=== PATIENT | male | born 1975 | race Caucasian/White ===

== ENCOUNTER 2023-09-19 16:13 | Emergency (ER) | payer OTHER, SELFPAY ==
[2023-09-19 16:25] VITALS: BP 130/84; PULSE 124; RESP 16; TEMP 38.5; O2SAT 97
--- NOTE | 2023-09-19 17:37 | ED.ANIMALBIT ---
HPI - Animal Bite General Chief Complaint: Animal Bite Stated Complaint: Dog Bite Time Seen by Provider: 09/19/23 17:31 Source: patient, family () and RN notes reviewed Mode of arrival: ambulatory Limitations: no limitations History of Present Illness HPI narrative: Patient presents today complaining of a dog bite to his right forearm that occurred 1 week ago. Patient was bit by his own dog while playing with it in his backyard. Today, he noted redness around the scab as well as some swelling and fever up to 100.8. Currently rates his pain 3/10 and has been taking Advil with some relief. He is up-to-date on his tetanus vaccine. Dog is not up-to-date on its shots, but he does not have concern about rabies. Patient states he has been taking the scab off of the wound and cleaning with peroxide daily. Related Data Allergies Allergy/AdvReac Type Severity Reaction Status Date / Time No Known Allergies Allergy Unverified 08/22/11 11:51 Review of Systems Review of Systems: CONSTITUTIONAL: Denies body aches, fever, chills, or sweats. EYES: Denies visual changes, redness, or discharge. ENT: Denies rhinorrhea, congestion, sore throat, or otalgia. CARDIOVASCULAR: Denies chest pain, palpitations, or edema. RESPIRATORY: Denies cough or dyspnea. GASTROINTESTINAL: Denies abdominal pain, nausea, vomiting, or diarrhea. GENITOURINARY: Denies dysuria or hematuria. SKIN: Denies rash, itching. + dog bite to right forearm MUSCULOSKELETAL: Denies back pain, joint pain, or myalgia. NEUROLOGIC: Denies headache, numbness, tingling, or weakness. PSYCH: Denies depression or anxiety. PMFSH Family History Family History Other Hypertension Social History Social History Alcohol intake: current Comments At time of signature, I have reviewed and agree with nursing past medical, surgical, social and family history unless otherwise noted. Please see nursing chart for further information. There is no relevant family history pertinent to the presenting complaint Exam Narrative: GENERAL: Well-appearing, well-nourished, and in no acute distress. HEAD: Normocephalic, atraumatic. EYES: EOMI. No redness or drainage. Conjunctivae normal. ENT: Mucous membranes pink and moist. NECK: Normal AROM. CHEST: No respiratory distress. EXTREMITIES: Normal range of motion. No edema. SKIN: Warm, dry, no rash. Capillary refill normal. Normal skin turgor. 0.5 cm flat scab to the dorsal aspect of the right forearm with 5 x 11 cm area of erythema. No induration. No fluctuance. No red streaking. Slight edema medially. Distal sensation intact. Capillary refill normal. Radial pulse normal. Full range of motion of the wrist and elbow. NEURO: No focal deficits. Alert and oriented x3. Gait steady. PSYCH: Normal affect. No signs of depression or anxiety. Course Course Level of Care: Express Care Visit Vital Signs Vital signs: Vital Signs Temperature 101.3 F H 09/19/23 16:25 Pulse Rate 124 H 09/19/23 16:25 Respiratory Rate 16 09/19/23 16:25 Blood Pressure 130/84 09/19/23 16:25 Pulse Oximetry 97 09/19/23 16:25 Oxygen Delivery Room Air 09/19/23 16:25 Temperature 101.3 F H 09/19/23 16:25 Pulse Rate 124 H 09/19/23 16:25 Respiratory Rate 16 09/19/23 16:25 Blood Pressure 130/84 09/19/23 16:25 Pulse Oximetry 97 09/19/23 16:25 Oxygen Delivery Room Air 09/19/23 16:25 Reviewed MDM - Animal Bite MDM Narrative Medical decision making narrative: Patient has been instructed on proper care of his wound. Prescription for Augmentin has been sent to pharmacy. Anticipatory guidance given. Differential Diagnosis Differential diagnosis: Likely bite by animal, dog bite and other (Cellulitis, abscess) Critical Care Time Critical Care Time Critical Care Time: No Discharge Plan Dischar
== END 2023-09-19 17:51 | disposition home or self-care (01) ==
PROVIDERS: Emergency Provider Nurse Practitioner; PCP Internal Medicine Infectious Disease
DX: L03.113 Cellulitis of right upper limb (principal); S51.851A Open bite of right forearm, initial encounter; W54.0XXA Bitten by dog, initial encounter
CPT/HCPCS: 99213; G0463

== ENCOUNTER 2024-09-06 08:45 | Outpatient (CLI) | payer OTHER, SELFPAY ==
--- NOTE | ~2024-09-06 | MR_ITS ---
MRI of the right elbow CLINICAL HISTORY: Pain TECHNIQUE: Proton-density and proton-density fat-sat imaging was performed in the axial, coronal, and sagittal planes. FINDINGS: Ulnar collateral ligament is intact. Radial collateral ligament and the lateral ulnar colla teral ligament are intact. There is severe tendinosis of the common extensor tendon origin of the lat eral epicondyle of the humerus. Common flexor tendon origin is intact. Bone marrow signals are unremarkable. No osseous or articular abnormality of the elbow joint seen. No joint effusion. Biceps, brachialis, and triceps tendons are intact. There is minimal tendinosis of the distal biceps tendon. Visualized muscle bellies are unremarkable. No soft tissue mass or fluid collection seen. IMPRESSION: Severe tendinosis of the common extensor tendon origin at the lateral epicondyle of the humerus. Reviewed, dictated and finalized at [facility]. IMPRESSION: Severe tendinosis of the common extensor tendon origin at the lateral epicondyl e of the humerus.
--- OUTSIDE RECORDS SUMMARY | 2024-09-06 09:03 | XMS_ITS | Data Portability ---
Author Organization [facility]ICI[facility] Address [address] [place] [address] Assessment Encounter Date Assessment Date Assessment LastModified by Organization Details LastModified Time 08/16/2022 08/16/2022 The labs drawn i n the ER on 08/10/[address] scan report from 08/10/2022 were both reviewed. His serum bilirubin was normal, he had protein and urobilinogen in his urine and the CT scan suggested constipation and possible inflammatory LN. oajao Not available 08/16/2022 12:39:39 01/21/2023 01/21/2023 I am not sure wh y he remains tachycardic oajao Not available 01/21/2023 14:08:54 02/07/2023 02/07/2023 I am not sure wh y he has a low grade fever, this may also explain his tachycardia. The differential includes an infection, rheumatological causes, inflammation and less likely a malignancy. oajao Not available 02/07/2023 13:20:12 Plan of Treatment Reminders Order Date Submit Date Provider Last Modified By Organization Details Last Modified Time Details Appointments None recorded. Lab CBC w/ auto diff 2022 023 [facility] (One Call Scheduling), [address] [place], [address], 12:20:56 CMP, serum or plasma 2022 023 [facility] (One Call Scheduling), [address] [place], [address], 12:20:56 urinalysis complete, reflex culture 2022 023 [facility] (One Call Scheduling), [address] [place], [address], 3 12:20:56 culture, blood - 2 sets, please 2022 023 [facility] (One Call Scheduling), [address] [place], [address], 3 08:11:35 culture, blood - 2 sets, please 2022 023 [facility] (One Call Scheduling), [address] [place], [address], 3 08:11:16 ESR (erythrocy te sedimentat ion rate), blood 2022 023 [facility] (One Call Scheduling), [address] [place], [address], 3 12:05:22 CRP, high sensitivit y, serum or plasma 2022 023 [facility] (One Call Scheduling), [address] [place], [address], 3 12:07:00 influenza virus A + B + SARS-CoV-2 (COVID19) Ag panel, rapid IA, upper respirator y specimen 2022 023 [facility], [address] [place], [address], 3 11:40:40 TSH, serum, reflex free T4 2022 023 [facility] (One Call Scheduling), [address] [place], [address], 3 12:17:02 TSH + free T4, serum 2022 023 [facility], [address], [place], [address], 10:14:25 magnesium, serum or plasma 2022 023 [facility], [address], [place], [address], 10:14:27 drug screen, blood 2022 023 [facility], [address], [place], [address], 10:14:29 CBC w/ auto diff 2022 023 [facility], [address], [place], [address], 10:14:28 basic metabolic 1998 panel, serum or plasma 2022 023 [facility], [address], [place], [address], 10:14:26 HIV 1 + 2, meaningful use set 2022 023 [facility], [address], [place], [address], 3 19:09:01 Hepatitis C IgG Ab, qual, serum 2022 023 [facility], [address], [place], [address], 19:08:58 lipid panel, serum 2022 023 [facility], [address], [place], [address], 06:19:38 glucose, QN [mass/volu me], serum or plasma 2022 023 [facility], [address], [place], [address], 3 06:19:39 HBsAg (hepatitis B surface Ag), EIA, serum 2022 023 [facility], [address], [place], [address], 3 19:09:00 bilirubin, total, serum or plasma 2022 023 [facility], [address], [place], [address], 3 19:09:00 unlisted lab - [id number] 9 drug-scree n 2022 023 [facility], [address], [place], [address], 3 19:08:59 urinalysis , dipstick 2022 023 [facility], [address], [place], [address], 3 06:19:[address] referral - Tachycardi a, abnormal EKG 2022 023 [facility], [address], [place], [address], 3 20:42:04 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 Imaging electrocar diogram 2022 023 [facility] (Radiology), [address] [place], [address], 3 12:25:32 XR, chest, 2 view - Low grade fever 2022 023 [email or web address] [facility] (Radiology), [address] [place], [address], 3 14:53:03 Medication Orders None recorded. Patient TargetsNo targets recorded. Patient Instructions Encounter Date Encounter Id Patient Instructions Last Modified By Organization Details Last Modified Time 08/16/2022 [id number] abdominal pain: care instructions oajao Not available 08/16/2022 10:48:04 Quitting Tobacco : Care Instructions oajao Not available 08/16/2022 10:47:00 Labs GI Stop smoking Bivalent COVID booster He should avoid eating foods that cause his LLQ abdominal pain, he states that he likes his Hot wings. Follow up in 6-8 weeks oajao Not available 08/16/2022 12:41:24 Detailed initial visit oajao Not available 08/16/2022 12:40:04 10/04/2022 [id number] A healthy lifestyle: care instructions oajao Not available 10/04/2022 10:37:30 learning about healthy weight oajao Not available 10/04/2022 10:37:30 Low fat, low CHO diet Colonoscopy report, please Follow up in 1 year and PRN oajao Not available 10/04/2022 10:50:53 01/21/2023 [id number] Labs Follow up i n 2 weeks and PRN oaisadorao Not available 01/21/2023 12:34:[address] Scan report was reviewed with him oaisadorao Not available 01/21/2023 14:09:36 02/07/2023 [id number] Colonoscopy report from [facility] Labs Podiatry CXR Follow up in 7-10 days ER if his symptoms worsen oajao Not available 02/07/2023 11:43:23 Detailed discussion oajao Not available 02/07/2023 13:19:14 02/10/2023 [id number] Colonoscopy report from [facility], please Cardiology TTE as ordered Blood culture results Follow up in 6 weeks and PRN oajao Not available 02/10/2023 12:11:20 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 Screening for malignant neoplasm of colon LLQ abdominal pain, screening colonoscopy LLQ abdominal pain, screening colonoscopy Referring Physician: Chris Brown, Internal Medicine, Encounter Date: 08/16/2022 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 Referral for Onyc homycosis of toenails Onychomycosis Onychomycosis Referring Physician: Chris Brown, Internal Medicine, Encounter Date: 02/07/2023 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 [address] [place], [address], 08/18/2022 06:19:38 08/18/1908/18/2022 LIPID PANEL HDL cholesterol 35.2 mg/dL 40.0-1 00.0 below low normal Not Available [facility] [address] [place], [address], 08/18/2022 06:19:38 08/18/1908/18/2022 LIPID PANEL VLDL cholesterol ezny 22.00 mg/dL 5.00-4 0.00 Not Available [facility] [address] [place], [address], 08/18/2022 06:19:38 08/18/1908/18/2022 LIPID PANEL LDL chol calc ([facility]) 127.2 mg/dL 0.0-99 .0 above high normal Not Available [facility] [address] [place], [address], 08/18/2022 06:19:38 08/18/1908/17/2022 URINA LYSIS , ROUTI NE specific gravity 1.020 1.001- 1.035 Not Available [facility] [address] [place], [address], 08/18/2022 06:19:39 08/18/1908/17/2022 URINA LYSIS , ROUTI NE pH 7.0 5.0-7. 0 Not Available [facility] [address] [place], [address], 08/18/2022 06:19:39 08/18/1908/17/2022 URINA LYSIS , ROUTI NE urine-color YELLOW yellow Not Available [facility] [address] [place], [address], 08/18/2022 06:19:39 08/18/1908/17/2022 URINA LYSIS , ROUTI NE appearance CLEAR Not Available [facility] [address] [place], [address], 08/18/2022 06:19:39 08/18/1908/17/2022 URINA LYSIS , ROUTI NE WBC esterase COMMEN T NEGAT JAREK Not Available [facility] [address] [place], [address], 08/18/2022 06:19:39 08/18/1908/17/2022 URINA LYSIS , ROUTI NE protein COMMEN T NEGAT JAREK Not Available [facility] [address] [place], [address], 08/18/2022 06:19:39 08/18/1908/17/2022 URINA LYSIS , ROUTI NE glucose COMMEN T NEGAT JAREK Not Available [facility] [address] [place], [address], 08/18/2022 06:19:39 08/18/1908/17/2022 URINA LYSIS , ROUTI NE ketones COMMEN T NEGAT JAREK Not Available [facility] [address] [place], [address], 08/18/2022 06:19:39 08/18/1908/17/2022 URINA LYSIS , ROUTI NE occult blood COMMEN T NEGAT JAREK Not Available [facility] [address] [facility], [place], [address], 08/18/2022 06:19:39 08/18/1908/17/2022 URINA LYSIS , ROUTI NE bilirubin COMMEN T NEGAT JAREK Not Available [facility] [address] [place], [address], 08/18/2022 06:19:39 08/18/1908/17/2022 URINA LYSIS , ROUTI NE urobilinogen ,semi-qn 0.2 eu/dL <=1.[address] [facility] [address] [place], [address], 08/18/2022 06:19:39 08/18/1908/17/2022 URINA LYSIS , ROUTI NE nitrite, urine COMMEN T negati ve NEGAT JAREK Not Available [facility] [address] [place], [address], 08/18/2022 06:19:39 08/18/1908/18/2022 HCV ANTIB MAKENZIE hep C virus Ab NON REACTI VE nonrea ctive HCV antib makenzie alone does not diffe renti ate betwe en previ ously resol veda infec tion and activ e infec tion. Equiv ocal and React jarek HCV antib makenzie resul ts shoul d be follo wed up with an HCV RNA test to suppo rt the diagn osis of activ e HCV infec tion. Not Available [facility] ([facility]) [address] [facility], [place], [address], 08/18/2022 19:08:58 08/18/1908/18/2022 HIV AB/P2 4 AG WITH REFLE X HIV Ab/P24 Ag screen NON REACTI VE nonrea ctive HIV Negat jarek HIV-1 /HIV- 2 antib odies and HIV-1 p24 antig en were NOT detec marianne. There is no labor atory evide nce of HIV infec tion. Not Available [facility] ([facility]) [address] [facility], [place], [address], 08/18/2022 19:09:01 08/18/1908/18/2022 GLUCO SE glucose 97 mg/dL 65-99 Not Available [facility] [address] [place], [address], 08/18/2022 06:19:39 08/18/1908/18/2022 HBSAG SCREE N HBsAg screen NEGATI VE negati ve Not Available [facility] ([facility]) [address] [facility], [place], [address], 08/18/2022 19:09:00 08/18/1908/18/2022 BILIR UBIN, TOTAL bilirubin, total 0.4 mg/dL 0.0-1. 2 Not Available [facility] ([facility]) [address] [place], [address], 08/18/2022 19:09:00 08/18/19 23 08/17/2022 [id number] 1 9 DRUG- SCREE N drug screen comment: COMMEN T This eros sis is perfo rmed by immun oassa y. Posit jarek findi ngs are uncon firme d eros tical test resul ts; if resul ts do not suppo rt expec marianne clini zeny findi ng, confi rmati on by an alter teresa metho dolog y is recom hector d. Patie nt metab olic varia bles, speci fic drug chemi stry, and speci men gato cteri stics can affec t test outco me. Techn ical consu ltati on is avail able at [email or web address], or call toll free [phone]. Not Available [facility] ([facility]) [address] [facility], [place], [address], 08/18/2022 19:08:59 08/18/1908/18/2022 [id number] 1 9 DRUG- SCREE N amphetamines , urine NEGATI VE NG/mL cutoff =1000 Amphe tamin e test inclu shahana Amphe tamin e and Metha mphet amine . Not Available [facility] ([facility]) [address] [facility], [place], [address], 08/18/2022 19:08:59 08/18/19 23 08/18/2022 [id number] 1 9 DRUG- SCREE N barbiturate NEGATI VE NG/mL cutoff =300 Not Available [facility] ([facility]) [address] [facility], [place], [address], 08/18/2022 19:08:59 08/18/19 23 08/18/2022 [id number] 1 9 DRUG- SCREE N benzodiazepi rio NEGATI VE NG/mL cutoff =300 Not Available [facility] ([facility]) [address] [place], [address], 08/18/2022 19:08:59 08/18/19 23 08/18/2022 [id number] 1 9 DRUG- SCREE N cannabinoid POSITI VE NG/mL cutoff =50 abnormal Not Available [facility] ([facility]) [address] [place], [address], 08/18/2022 19:08:59 08/18/19 23 08/18/2022 [id number] 1 9 DRUG- SCREE N cocaine (metab.) NEGATI VE NG/mL cutoff =300 Not Available [facility] ([facility]) [address] [place], [address], 08/18/2022 19:08:59 08/18/19 23 08/18/2022 [id number] 1 9 DRUG- SCREE N methaqualone NEGATI VE NG/mL cutoff =300 Not Available [facility] ([facility]) [address] [place], [address], 08/18/2022 19:08:59 08/18/19 23 08/18/2022 [id number] 1 9 DRUG- SCREE N opiate NEGATI VE NG/mL cutoff =2000 Opiat e test inclu shahana Codei ne, Morph ine, Pemberton morph one, Pemberton codon e. Not Available [facility] ([facility]) [address] [place], [address], 08/18/2022 19:08:59 08/18/19 23 08/18/2022 [id number] 1 9 DRUG- SCREE N phencyclidin e NEGATI VE NG/mL cutoff =25 Not Available [facility] ([facility]) [address] [place], [address], 08/18/2022 19:08:59 08/18/19 23 08/18/2022 [id number] 1 9 DRUG- SCREE N methadone screen, urine NEGATI VE NG/mL cutoff =300 Not Available [facility] ([facility]) [address] [place], [address], 08/18/2022 19:08:59 01/22/2001/22/2023 TSH+F REE T4 TSH 8.830 uIU/m L 0.450- 4.500 above high normal Not Available [facility] ([facility]) [address] [place], [address], 01/26/2023 10:14:25 01/22/2001/22/2023 TSH+F REE T4 T4,free(dire ct) 0.98 NG/dL 0.82-1 .77 Not Available [facility] ([facility]) [address] [place], [address], 01/26/2023 10:14:25 01/22/2001/22/2023 BASIC METAB OLIC PANEL (7) glucose 106 mg/dL 70-99 above high normal Not Available [facility] ([facility]) [address] [place], [address], 01/26/2023 10:14:26 01/22/2001/22/2023 BASIC METAB OLIC PANEL (7) BUN 26 mg/dL 6-24 above high normal Not Available [facility] ([facility]) [address] [place], [address], 01/26/2023 10:14:26 01/22/2001/22/2023 BASIC METAB OLIC PANEL (7) creatinine 0.90 mg/dL 0.76-1 .27 Not Available [facility] ([facility]) [address] [place], [address], 01/26/2023 10:14:26 01/22/20 23 01/22/2023 BASIC METAB OLIC PANEL (7) eGFR 106 mL/mi n/1.7 3 >59 Not Available [facility] ([facility]) [address] [place], [address], 01/26/2023 10:14:26 01/22/2001/22/2023 BASIC METAB OLIC PANEL (7) BUN/creatini ne ratio 29 9-20 above high normal Not Available [facility] ([facility]) [address] [facility], [place], [address], 01/26/2023 10:14:26 01/22/2001/22/2023 BASIC METAB OLIC PANEL (7) sodium 141 mmol/ L 134-14 4 Not Available [facility] ([facility]) [address] [facility], [place], [address], 01/26/2023 10:14:26 01/22/2001/22/2023 BASIC METAB OLIC PANEL (7) potassium 4.9 mmol/ L 3.5-5. 2 Not Available [facility] ([facility]) [address] [facility], [place], [address], 01/26/2023 10:14:26 01/22/20 23 01/22/2023 BASIC METAB OLIC PANEL (7) chloride 103 mmol/ L 96-106 Not Available [facility] ([facility]) [address] [facility], [place], [address], 01/26/2023 10:14:26 01/22/20 23 01/22/2023 BASIC METAB OLIC PANEL (7) carbon dioxide, total 25 mmol/ L 20-29 Not Available [facility] ([facility]) [address] [facility], [place], [address], 01/26/2023 10:14:26 01/22/2001/22/2023 MAGNE SIUM magnesium 2.3 mg/dL 1.6-2. 3 Not Available [facility] ([facility]) [address] [facility], [place], [address], 01/26/2023 10:14:27 01/22/2001/22/2023 CBC WITH DIFFE RENTI AL/PL ATELE T WBC 9.1 x10e3 /uL 3.4-10 .8 Not Available [facility] ([facility]) [address] [place], [address], 01/26/2023 10:14:28 01/22/2001/22/2023 CBC WITH DIFFE RENTI AL/PL ATELE T RBC 3.40 x10e6 /uL 4.14-5 .80 below low normal Not Available [facility] ([facility]) [address] [place], [address], 01/26/2023 10:14:28 01/22/2001/22/2023 CBC WITH DIFFE RENTI AL/PL ATELE T hemoglobin 10.9 g/dL 13.0-1 7.7 below low normal Not Available [facility] ([facility]) [address] [place], [address], 01/26/2023 10:14:28 01/22/2001/22/2023 CBC WITH DIFFE RENTI AL/PL ATELE T hematocrit 33.4 % 37.5-5 1.0 below low normal Not Available [facility] ([facility]) [address] [place], [address], 01/26/2023 10:14:28 01/22/2001/22/2023 CBC WITH DIFFE RENTI AL/PL ATELE T MCV 98 fL 79-97 above high normal Not Available [facility] ([facility]) [address] [place], [address], 01/26/2023 10:14:28 01/22/2001/22/2023 CBC WITH DIFFE RENTI AL/PL ATELE T MCH 32.1 pg 26.6-3 3.0 Not Available [facility] ([facility]) [address] [place], [address], 01/26/2023 10:14:28 01/22/20 23 01/22/2023 CBC WITH DIFFE RENTI AL/PL ATELE T MCHC 32.6 g/dL 31.5-3 5.7 Not Available [facility] ([facility]) [address] [facility], [place], [address], 01/26/2023 10:14:28 01/22/20 23 01/22/2023 CBC WITH DIFFE RENTI AL/PL ATELE T RDW 12.3 % 11.6-1 5.4 Not Available [facility] ([facility]) [address] [facility], [place], [address], 01/26/2023 10:14:28 01/22/2001/22/2023 CBC WITH DIFFE RENTI AL/PL ATELE T platelets 387 x10e3 /uL 150-45 0 Not Available [facility] ([facility]) [address] [facility], [place], [address], 01/26/2023 10:14:28 01/22/20 23 01/22/2023 CBC WITH DIFFE RENTI AL/PL ATELE T neutrophils 57 % notest ab. Not Available [facility] ([facility]) [address] [facility], [place], [address], 01/26/2023 10:14:28 01/22/20 23 01/22/2023 CBC WITH DIFFE RENTI AL/PL ATELE T lymphs 32 % notest ab. Not Available [facility] ([facility]) [address] [facility], [place], [address], 01/26/2023 10:14:28 01/22/20 23 01/22/2023 CBC WITH DIFFE RENTI AL/PL ATELE T monocytes 11 % notest ab. Not Available [facility] ([facility]) [address] [facility], [place], [address], 01/26/2023 10:14:28 01/22/20 23 01/22/2023 CBC WITH DIFFE RENTI AL/PL ATELE T eos 0 % notest ab. Not Available [facility] ([facility]) [address] [facility], [place], [address], 01/26/2023 10:14:28 01/22/2001/22/2023 CBC WITH DIFFE RENTI AL/PL ATELE T basos 0 % notest ab. Not Available [facility] ([facility]) [address] [facility], [place], [address], 01/26/2023 10:14:28 01/22/2001/22/2023 CBC WITH DIFFE RENTI AL/PL ATELE T neutrophils (absolute) 5.1 x10e3 /uL 1.4-7. 0 Not Available [facility] ([facility]) [address] [facility], [place], [address], 01/26/2023 10:14:28 01/22/2001/22/2023 CBC WITH DIFFE RENTI AL/PL ATELE T lymphs (absolute) 2.9 x10e3 /uL 0.7-3. 1 Not Available [facility] ([facility]) [address] [facility], [place], [address], 01/26/2023 10:14:28 01/22/2001/22/2023 CBC WITH DIFFE RENTI AL/PL ATELE T monocytes(ab solute) 1.0 x10e3 /uL 0.1-0. 9 above high normal Not Available [facility] ([facility]) [address] [facility], [place], [address], 01/26/2023 10:14:28 01/22/2001/22/2023 CBC WITH DIFFE RENTI AL/PL ATELE T eos (absolute) 0.0 x10e3 /uL 0.0-0. 4 Not Available [facility] ([facility]) [address] [facility], [place], [address], 01/26/2023 10:14:28 01/22/20 23 01/22/2023 CBC WITH DIFFE RENTI AL/PL ATELE T baso (absolute) 0.0 x10e3 /uL 0.0-0. 2 Not Available [facility] ([facility]) [address] [facility], [place], [address], 01/26/2023 10:14:28 01/22/20 23 01/22/2023 CBC WITH DIFFE RENTI AL/PL ATELE T immature granulocytes 0 % notest ab. Not Available [facility] ([facility]) [address] [facility], [place], [address], 01/26/2023 10:14:28 01/22/2001/22/2023 CBC WITH DIFFE RENTI AL/PL ATELE T immature grans (abs) 0.0 x10e3 /uL 0.0-0. 1 Not Available [facility] ([facility]) [address] [facility], [place], [address], 01/26/2023 10:14:28 01/22/2001/21/2023 DRUG SCREE N (BLOO D AND SERUM ) disclaimer: COMMEN T This test was carlitos isidro and its perfo rmanc e gato cteri stics deter mined by [facility]. It has not been clear ed or appro veda by the Food and Drug Admin istra tion. Not Available [facility] ([facility]) [address] [facility], [place], [address], 01/26/2023 10:14:28 01/22/2001/25/2023 DRUG SCREE N (BLOO D AND SERUM ) acetone <0.010 Detec tion Limit = 0.010 Not Available [facility] ([facility]) [address] [facility], [place], [address], 01/26/2023 10:14:28 01/22/2001/25/2023 DRUG SCREE N (BLOO D AND SERUM ) ethanol <0.010 Detec tion Limit = 0.010 Not Available [facility] ([facility]) [address] [place], [address], 01/26/2023 10:14:28 01/22/2001/25/2023 DRUG SCREE N (BLOO D AND SERUM ) isopropanol <0.010 Detec tion Limit = 0.010 Not Available [facility] ([facility]) [address] [place], [address], 01/26/2023 10:14:28 01/22/2001/25/2023 DRUG SCREE N (BLOO D AND SERUM ) methanol <0.010 Detec tion Limit = 0.010 Not Available [facility] ([facility]) [address] [facility], [place], [address], 01/26/2023 10:14:28 01/22/2001/25/2023 DRUG SCREE N (BLOO D AND SERUM ) chlordiazepo xide <0.1 below low normal Not Available [facility] ([facility]) [address] [place], [address], 01/26/2023 10:14:28 01/22/2001/25/2023 DRUG SCREE N (BLOO D AND SERUM ) norchlordiaz epoxide <0.1 below low normal Not Available [facility] ([facility]) [address] [place], [address], 01/26/2023 10:14:28 01/22/2001/25/2023 DRUG SCREE N (BLOO D AND SERUM ) nordiazepam <0.1 below low normal Not Available [facility] ([facility]) [address] [place], [address], 01/26/2023 10:14:28 01/22/20 23 01/25/2023 DRUG SCREE N (BLOO D AND SERUM ) diazepam <0.1 below low normal Thera peuti c: Chlor diaze poxid e < 1.0 Norch lordi azepo xide < 0.7 Demox epam < 0.6 Nordi azepa m < 1.5 Diaze brennen < 1.0 Toxic : (Tota l, Paren t+Met ) > 5.0 Not Available [facility] ([facility]) [address] [place], [address], 01/26/2023 10:14:28 01/22/2001/25/2023 DRUG SCREE N (BLOO D AND SERUM ) salicylates NONE DETECT ED Detec tion Limit = 5 Not Available [facility] ([facility]) [address] [place], [address], 01/26/2023 10:14:28 01/22/20 23 01/26/2023 DRUG SCREE N (BLOO D AND SERUM ) pentobarbita l <1 below low normal Detec tion Limit = 1 Not Available [facility] ([facility]) [address] [place], [address], 01/26/2023 10:14:28 01/22/2001/26/2023 DRUG SCREE N (BLOO D AND SERUM ) phenobarbita l <1 below low normal Detec tion Limit = 1 Not Available [facility] ([facility]) [address] [place], [address], 01/26/2023 10:14:28 01/22/2001/26/2023 DRUG SCREE N (BLOO D AND SERUM ) butalbital <1 below low normal This test was devel dwaine and its perfo rmanc e gato cteri stics deter mined by [facility]. It has not been clear ed or appro veda by the Food and Drug Admin istra tion. Detec tion Limit = 1 Not Available [facility] ([facility]) [address] [place], [address], 01/26/2023 10:14:28 08/17/19 23 08/10/2022 CT, abdom en + pelvi s, w/ contr ast No observ ation record ed. [facility] [address] [place], [address], 08/16/2022 12:30:46 01/16/20 23 01/13/2023 CT, abdom en + pelvi s, w/ contr ast No observ ation record ed. [facility] [address] [place], [address], 01/21/2023 12:18:58 02/09/20 23 02/08/2023 XR, chest , 2 view No observ ation record ed. [facility] [address] [place], [address], 02/10/2023 11:54:50 02/10/20 23 02/09/2023 elect deborah meadgr am No observ ation record ed. [facility] [address] [place], [address], 02/10/2023 11:54:49 06/10/19 24 06/10/2023 adeno sine stres s test (PROC ) No observ ation record ed. [facility] [address], [place], [address], 06/10/2023 19:26:11 06/10/19 24 06/10/2023 cardi ac stres s test No observ ation record ed. [facility] [address], [place], [address], 06/10/2023 19:26:39 06/24/19 24 06/24/2023 myoca rdial perfu rajan study w/ eject ion fract ion (PROC ) No observ ation record ed. [facility] [address], [place], [address], 06/24/2023 15:09:30 Result Notes None recorded. 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 Not Available [facility] 21:20:14 Electrocardio gram abnormal 856865367 Active 2022 Not Available [facility] 3 21:20:14 Pain of joint of foot 830121377 Active Not Available [facility] 3 21:20:14 Anxiety 30726893 Active Not Available [facility] 3 21:20:14 Chronic anxiety 123277569 Active Not Available [facility] 3 21:20:14 Hyperlipidemi a 25117975 Active Not Available [facility] 21:20:14 Impotence Active Not Available [facility] 21:20:14 Problem Notes None recorded. Medical Equipment None Reported. Allergies No known drug allergies Medications Name Sig Start Date Stop Date Status Note LastModified by Organization Details LastModified Time cyclobenz aprine 10 mg tablet TAKE 1 TABLET BY MOUTH EVERY 8 HOURS 10/04 completed Not Available Not Available Not Available ondansetr on HCl 4 mg tablet TAKE 1 TABLET BY MOUTH EVERY 8 HOURS 01/21 completed Not Available Not Available Not Available Tubersol 5 tub. unit/0.1 mL intraderm al injection solution Inject 0.1 mL by intrader mal route. 09/05 completed Patient received PPD on 08/30/19 18, and is due to returned to be read on 09/01/19 18. Not Available Not Available Not Available peg-elect rolyte solution 420 gram oral solution USE DIRECTED 10/04 completed Not Available Not Available Not Available dicyclomi ne 20 mg tablet TAKE 1 TABLET BY MOUTH THREE TIMES DAILY NEEDED 01/21 completed Not Available Not Available Not Available diclofena c potassium 50 mg tablet Take 1 tablet twice a day by oral route for 30 days. 08/25 completed Not Available Not Available Not Available gabapenti n 300 mg capsule Take 1 capsule 3 times a day by oral route for 30 days. 08/25 completed Not Available Not Available Not Available polyethyl jayson glycol 3350 17 gram/dose oral powder TAKE 17 GRAMS BY MOUTH ONCE DAILY NEEDED 08/16 completed Not Available Not Available Not Available doxycycli ne hyclate 100 mg tablet TAKE 1 TABLET BY MOUTH TWICE DAILY FOR 10 DAYS active Not Available Not Available No t Available naproxen 500 mg tablet TAKE 1 TABLET BY MOUTH TWICE DAILY WITH FOOD active Not Available Not Available No t Available amoxicill in 875 mg-potass ium clavulana te 125 mg tablet TAKE 1 TABLET BY MOUTH EVERY 12 HOURS FOR 10 DAYS active Not Available Not Available No t Available BinaxNOW COVID-19 Ag Self Test kit TEST DIRECTED TODAY active Not Available Not Available No t Available Vitals Date Recorded Body height Oxygen saturation Oxygen saturation in Arterial blood by Pulse oximetry Heart rate Respiratory rate Body mass index (BMI) Body weight Systolic blood pressure Diastolic blood pressure Provider Name and Address Organization Details Last Updated DateTime 3 160.66 cm 99 % 99 % 116 /min 14 /min 27 kg/m2 72477.5 1 g 116 mm[Hg] 80 mm[Hg] Shanell Toney MA [facility] 3 10:41:08 Date Recorded Body height Body mass index (BMI) Body weight Oxygen saturation Oxygen saturation in Arterial blood by Pulse oximetry Heart rate Respiratory rate Systolic blood pressure Diastolic blood pressure Provider Name and Address Organization Details Last Updated DateTime 3 160.66 cm 26.4 kg/m2 41978.2 9 g 98 % 98 % 96 /min 16 /min 110 mm[Hg] 80 mm[Hg] Shanell Toney MA [facility] 3 10:24:20 Date Recorded Heart rate Provider Name an d Address Organization Details Last Updated DateTime 01/21/2023 120 /min Chris Brown MD Attn: Accounting,[address] [place], [address], [facility] 01/21/2023 12:37:50 Date Recorded Body height Body mass index (BMI) Body weight Respiratory rate Oxygen saturation Oxygen saturation in Arterial blood by Pulse oximetry Heart rate Systolic blood pressure Diastolic blood pressure Provider Name and Address Organization Details Last Updated DateTime 3 160.66 cm 27 kg/m2 51754.0 7 g 18 /min 99 % 99 % 130 /min 112 mm[Hg] 80 mm[Hg] Shanell Toney MA [facility] 3 12:03:56 Date Recorded Body height Body mass index (BMI) Body weight Oxygen saturation Oxygen saturation in Arterial blood by Pulse oximetry Heart rate Respiratory rate Body temperature Systolic blood pressure Diastolic blood pressure Provider Name and Address Organization Details Last Updated DateTime 3 160.66 cm 27.1 kg/m2 52598.2 2 g 99 % 99 % 110 /min 16 /min 99.5 [degF] 114 mm[Hg] 86 mm[Hg] Shanell Toney MA [facility] 3 10:49:12 Date Recorded Body temperature Provider Name a dc Address Organization Details Last Updated DateTime 02/10/2023 98.5 [degF] Chris Brown MD Attn: Accounting,[address] [place], [address], [facility] 02/10/2023 12:02:57 Date Recorded Body height Body mass index (BMI) Body weight Oxygen saturation Oxygen saturation in Arterial blood by Pulse oximetry Respiratory rate Heart rate Systolic blood pressure Diastolic blood pressure Provider Name and Address Organization Details Last Updated DateTime 3 160.66 cm 27.3 kg/m2 97970.2 5 g 99 % 99 % 18 /min 102 /min 114 mm[Hg] 80 mm[Hg] Shanell Toney MA [facility] 3 11:51:27 Social History Question Answer Notes LastModified by Organizat ion Details LastModified Time Tobacco Smoking Status Former Smoker quit cigs in Oct 2022 BAB[facility] Mejia, [facility] 02/07/2023 10:47:09 Are You Blind Or Do You Have Difficulty Seeing? No Information not available 08/16/2022 What Is Your Level Of Caffeine Consumption? Moderate Information not available 08/16/2022 Have You Been To An Area Known To Be High Risk For COVID-19? Yes Information not available 08/16/2022 Are You Deaf Or Do You Have Serious Difficulty Hearing? No Information not available 08/16/2022 What Type Of Diet Are You Following? REGULAR Information not available 08/16/2022 What Was The Date Of Your Most Recent Tobacco Screening? 02/07/2023 Information not available 02/07/2023 What Is Your Current Pack Years? 20-29packyear s Information not available 08/16/2022 Do You Have Smoke And Carbon Monoxide Detectors In Your Home? Yes Information not available 08/16/2022 At What Age Did You Start Smoking Tobacco? 14 Information not available 08/16/2022 How Much Tobacco Do You Smoke? 0.5 PPD Information not available 08/16/2022 Has Tobacco Cessation Counseling Been Provided? Yes Information not available 08/16/2022 On What Date Was Tobacco Cessation Counseling Provided? 02/07/2023 Information not available 02/07/2023 How Many Years Have You Smoked Tobacco? 33 Information not available 08/16/2022 Sex: Unknown Functional Status Question Answer Note LastModified by [employer] ion Details LastModified Time Do you use any illicit or recreational drugs? Yes Methamphetamine stopped 2020 Marijuanna Information not available 02/07/2023 Do you or have you ever used any other forms of tobacco or nicotine? No Information not available 08/16/2022 What is your level of alcohol consumption? None Information not available 08/16/2022 Are you able to care for yourself? Yes Information not available 08/16/2022 Mental Status None recorded. Family History Relationship Description Onset Age of this Age Resolved Age Notes LastModified by Organization Details LastModified Time Mother Suspected breast cancer [email or web address] Not available 08/28 12:36:04 Father Heart disease [email or web address] Not available 08/28 12:36:04 Father Hypertensive disorder [email or web address] Not available 08/28 12:36:04 Father Hypercholest erolemia [email or web address] Not available 08/28 12:36:04 Medical History Condition Response Coronary Artery Disease N Other N Atrial Fibrillation N High Blood Pressure N Thyroid Problems N Kidney or Bladder Problems N GI Problems Y Depression N COPD N Blood Clots N Skin Problems N Anemia N Heart Attack (NV) N Anxiety Disorder N Diabetes N Muscle, Joint, or Bone Problems N Seizures/Epilepsy N Acid Reflux (GERD) N Cancer N Stroke N Asthma N Allergies N High Cholesterol N Hepatitis N Liver Disease N Headaches N Osteoporosis N Heart Failure N Immunizations Vaccine Type Date Status Note Provider Nam e and Address Organization Details Recorded Time COVID-19, mRNA, LNP-S, PF, 30 mcg/0.3 mL dose 07/01/2020 completed Not Available [facility] 21:20:14 COVID-19, mRNA, LNP-S, PF, 30 mcg/0.3 mL dose 07/20/2020 completed Not Available [facility] 21:20:14 Tdap 08/16/2022 completed Chris Brown MD Attn: Accounting,[address] [place], [address], [facility] 08/16/2022 12:30:47 Past Encounters Encounter ID Performer Location Encounter Start Date Encounter Closed Date Diagnosis/Indication Diagnosis SNOMED-CT Code Diagnosis ICD10 Code Diagnosis Note [id number] Marija Malcolm MD [facility] (Adult Med) [address] [place] [address] 29853-502 0 08/28/2014 12:06:30 08/28/2014 12:57:59 Pain of joint of foot 728514335 [id number] Marija Malcolm MD [facility] (Adult Med) [address] [place] [address] 44260-164 0 08/15/2015 09:47:48 08/15/2015 11:27:57 Pain of joint of foot 954032339 M79.671 Anxiety 46638532 F41.9 Chronic anxiety 09593831 9 F41.9 History of hypertension 209763844 Z86.79 Hyperlipidemia 44474225 E78.5 Impotence 989728041 N52. 9 [id number] Marija Malcolm MD [facility] (Adult Med) [address] [place] [address] 47067-320 0 08/25/2017 11:55:08 08/25/2017 12:35:25 Adult health examination 502479986 Z00.00 [id number] Marija Malcolm MD [facility] ([facility]ult [facility]) [address] [place] [address] 71376-641 0 08/29/2017 12:14:37 08/29/2017 13:17:48 Tuberculosis screening 316162211 Z11.1 [id number] MD [facility] ([facility]ult [facility]) [address] [place] [address] 84287-168 0 08/16/2022 10:29:19 08/17/2022 12:49:15 General examination of patient 866942688 Z00.01 Abnormal urinalysis 1672 02970 R82.90 Follow-up visit 24237679 9 Z09 Screening for malignant neoplasm of colon 259270093 Z12.11 Nicotine dependence 5629 4008 F17.200 Abdominal pain 51883418 R10.9 Diverticul ar disease?, although not supported by the CT scan. Health con dition feared but not present 6957325595 03919 Z71.1 Requires a tetanus booster 989399323 Z28.39 Immunization advised 310 609388 Z71.9 Tachycardia 2170594 R00. 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 0 [id number] MD [facility] ([facility]ult Med) [address] [place] [address] 88546-931 0 02/07/2023 10:38:52 02/08/2023 14:53:03 Follow-up visit 394289235 Z09 Tachycardia 2145834 R00. [address] abdomen and pelvis 01/13/2023 enteritis Serum thyr oid stimulating hormone level outside reference range 071540097 R89.1 Recheck Onychomyco sis of toenails 452165373 B35.1 Screening for cancer 158 00653 Z19.1 Colonoscop y 2022 [id number] Chris Brown MD [facility] (Adult Med) [facility] [place] [address] 02/10/2023 11:44:01 02/14/2023 16:27:53 Electrocardiogram abnormal 010069205 R94.31 Cardiology Tachycardia 7660283 R00. 0 EKG 97/minute Marijuana user 621500778 F12.90 Health Concerns Section Related Observation LastModified by Organization Detai ls LastModified Time None Recorded Concern Status LastModified by Organization Details LastModified Time None Recorded Advance Directives Directive None Recorded Payers Insurance Date Sequence Insurance Name Policy Number Policy Bernabe Covered Member ID Bernabe Member ID Guarantor Name 08/17/2022 1 [facility] PRIOR TO 09/25/2020 (MEDICAID REPLACEMENT - HMO) Jean-Paul Dean [id number] Jean-Paul Dean 04/15/2024 1 [facility] ON OR AFTER 09/25/20 (MEDICAID REPLACEMENT - HMO) Jean-Paul Dean [id number] Jean-Paul Dean Notes Date Note Type Note Provider Name and Address Organization Details Recorded Time 08/16/2022 text/html Here with his wi feThe history is partly from his EHR. I am doing a follow up from the CT that Mindy did on meWhen I eat spicy food and I get spicy food down hereThey said I pulled a [id number], Mindy said he had colitisHe looks JaundicedWeight loss 47 y/o WM who was last seen in this office by a different provider on 08/25/2017. He has recurrent LLQ abdominal pain a day or two after he eats anything spicy, there is no rectal bleeding, diarrhea or any other GI symptoms. He was in the ER on 08/10/2022 with abdominal pain, he was apparently told that his pain in the left subcostal margin was from a muscle strain from lifting his grandchild. His thinks that he is jaundiced and that he has lost weight. PMHX. jaundice, Tobacco, Meth. in remission and HELENA. Chris Brown MD Attn: Accounting,[address] , [place], [address], [facility] 08/16/2022 12:42:36 10/04/2022 text/html My follow upN o colon cancer Mr Dean returns, he denies any further LLQ abdominal pain and apparently had a negative colonoscopy. Chris Brown MD Attn: Accounting,[address] [facility], [place], [address], [facility] 10/04/2022 16:03:23 01/21/2023 text/html Here with his wi fe I am better nowHe stopped taking the ones they gave himI am just so excited... He was in the ER on 01/13/2023 with enteritis, unfortunately, he could not tolerate the Dicyclomine. He is much better and able to eat and he is back to his usual activities. Chris Brown MD Attn: Accounting,[address] [facility], [place], [address], [facility] 01/21/2023 14:09:55 02/07/2023 text/html FeverReported bypatient.Quality:symp toms worse during the day; symptoms worse in the evening Severity:same Duration:constant Onset/Timing:first recorded: (12/2022) Context:no recent travel; no tick/insect bites; no new medications Modifying Factors:nothing gives relief; nothing makes it worse Associated Symptoms:no rash; no lethargy Here with his Follow up on the lab workHe's still running a fever, he has been running a fever since he got sickNo pain, no hurting, nothingI feel fine right now, I feel like I .... run a marathon Mr Dean returns, since his ER visit on 01/03/2023 with enteritis, he has had temperatures between 99 &100.2F. He has an intermittent cough, but denies a runny nose, chills, nausea or vomiting. He also denies any more GI symptoms, he does not work and he has not travelled out of the area. There is no rash, MSK pain, dysuria and he feels well. He takes no OTC medications, he has a normal appetite and has not felt any abnormal lumps. He does not drink energy drinks and although he may have used Methamphetamines in then past, his only recreational drug is Marijuana. Chris Brown MD Attn: Accounting, [facility], [place], [address], [facility] 02/07/2023 13:22:53 02/10/2023 text/html Here with his wi fe. I am okayI smoke Marijuana... No further elevated temperatures noted and he feels well Chris Brown MD Attn: Accounting,[address] [facility], [place], [address], [facility] 02/10/2023 13:32:18
--- OUTSIDE RECORDS SUMMARY | 2024-09-06 09:03 | XMS_ITS | Data Portability ---
Author Organization [place] [facility] [employer], Main Office Address [address] [place] [address] Care Team Providers Care Oil Analyst Name Role Phone JENNY PRECIADO Primary Care Provider [phone] JENNY PRECIADO Referring Provider [phone] JENNY PRECIADO Primary Care Provider [phone] Assessment Encounter Date Assessment Date Assessment LastModified by Organization Details LastModified Time 06/05/2024 06/05/2024 48-year-old patient presents today with right elbow pain that has been going on for about 2 months. 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 He denies any specific injury. He states that it hurts to make a fist, supinate and pronate the forearm, and lift anything. This is affecting his daily activities and his job duties. He presented to the emergency room where he was told he had tennis elbow. He was given 800 mg of ibuprofen and a Medrol pack, which did not help. He is left-handed. He rates his pain today a 6/10. Review of systems per patient questionnaire Imaging: Two views of the x-ray were reviewed showing no acute bony abnormality, no fracture. Preserved joint spaces throughout. Physical exam: Tenderness with palpitation over lateral and medial epicondyle. Pain at the elbow when making a fist. Pain with restricted wrist flexion and extension. Pain with supination and pronation of the forearm. In pain with fully extending the elbow. No restrictions in range of motion of the elbow. Sensation intact throughout. Based on exam it seems he is experiencing lateral and medial epicondylitis. He has more pain on the lateral side. For that we discussed risks and benefits of a cortisone injection with micro needling. He elected to proceed with that. We will also order meloxicam for a stronger anti-inflammator y. We will provide him with a handout of lateral and medial epicondylitis stretches and therapy exercises. We discussed that he can try a counterforce strap and Voltaren gel as well. He states he has too much pain to complete his job duties. We will give him a restriction of no use of the right arm for work. We can see him back in 6-8 weeks for recheck. He is in agreement with this plan. Not available 06/05/2024 14:29:44 07/17/2024 07/17/2024 48-year-old patient presents today with right elbow and forearm pain. 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 He had tenderness at the medial and lateral epicondyles. For treatment he has tried a steroid pack, ibuprofen, meloxicam, counterforce strap, PT exercises, voltaren, and a cortisone injection. He states the injection only worked about 8 hours. We gave him restrictions of no use of right arm for work, they did not let him work with these restrictions so he has been off and resting the arm. He states the pain is worse and he now has swelling in the muscles around the elbow. Physical exam: Tenderness with palpitation all around elbow, including over muscle, lateral, and medial epicondyle. Slight edema compared to contralateral arm. Pain at the elbow when making a fist. Pain with restricted wrist flexion and extension. Pain with supination and pronation of the forearm. In pain with fully extending the elbow. No restrictions in range of motion of the elbow. Sensation intact throughout. He has tried all conservative measures and is still experiencing pain in the elbow. This is restricting his ability to work and do daily activities. We will get an MRI of the elbow to further assess tendon and muscle. We will see him back after MRI to go over results. He is in agreement with this plan. Not available 07/17/2024 14:49:40 08/28/2024 08/28/2024 48-year-old patient presents today for follow up of right elbow and forearm pain. At his last visit we ordered an MRI, which was denied by insurance because he had not done formal physical therapy. He has his last therapy session tomorrow. For treatment he has tried a steroid pack, ibuprofen, meloxicam, counterforce strap, physical therapy, voltaren, and a cortisone injection. He states the injection only worked about 8 hours. We gave him restrictions of no use of right arm for work, they did not let him work with these restrictions so he has been off and resting the arm. He states the pain is continuing to get worse. Physical exam: Tenderness with palpitation all around elbow, including over muscle, lateral, and medial epicondyle. Increased edema in the area compared to his last appointment. Pain at the elbow when making a fist. Pain with restricted wrist flexion and extension. Pain with supination and pronation of the forearm. In pain with fully extending the elbow. No restrictions in range of motion of the elbow. Sensation intact throughout. He has tried all conservative measures, including physical therapy, and he is still experiencing pain and swelling in the elbow. This is restricting his ability to work and do daily activities. We will again order an MRI of the elbow to further assess tendon and muscle. We will see him back after MRI to go over results. He is in agreement with this plan. Not available 08/28/2024 14:55:41 Plan of Treatment Reminders Order Date Submit Date Provider Last Modified By Organization Details Last Modified Time Details Appointments Any 5 2024 11:10A M Jyay Vega MD Not available Not available Not available Lab None recorded. Referral None recorded. Procedures injection /aspirati on joint/bur sa (PROC) 2024 025 [email or web address] In-Office Order, Internal Use Only DO Not Attach Compendium DO Not Attach Compendium, Do Not Delete/merge, [id number] 06/05/2024 14:19:52 colonosco py screening (PROC) 2022 023 [facility] (Pre-Screen), [address] [place], [address], 09/06/2022 13:36:20 Surgeries None recorded. Imaging MRI, elbow, w/o contrast - Please provide pt with disc of images to bring to apt. Thanks 2024 025 [facility], [address], [place], [address], 08/31/2024 11:25:18 Medication Orders bupivacai ne HCl 0.5 % (5 mg/mL) injection solution 2024 025 [place] [address] [id number], [address], [place], [id number], 06/05/2024 14:56:32 Kenalog 10 mg/mL suspensio n for injection 2024 025 [place] [address] [id number], [address], [place], [id number], 06/05/2024 14:56:32 Mobic 15 mg tablet 2024 025 [place] [address] [facility], [address], [place], [id number], 06/05/2024 14:56:32 Golytely 236 gram-22.7 4 gram-6.74 gram-5.86 gram oral solution 2022 023 [email or web address] [facility] #37726, [address], [place], [id number], 06/05/2024 13:59:18 Patient TargetsNo targets recorded. Patient Instructions Encounter Date Encounter Id Patient Instructions Last Modified By Organization Details Last Modified Time 09/01/2022 [id number] GOLYTELY [email or web address] Not available 09/2022 11:42:21 PT NEEDS A SCREENING COLON . R/O POLYP . RECOMMEND A COLONOSOPY . Risks benefits and complications were explained to the pt. ( BLEEDING PERFORATION , INFECTION , ). PT VERBALIZES UNDERSTANDING AND IS WILLING TO PROCEDE . Not available 09/01/2022 11:42:30 Reason for Referral None Reported. Results Created Date Observation Date Name Description Value Unit Range Abnormal Flag Note LastModifiedBy Organization Detail LastModifiedTime 09/07/19 23 09/06/2022 colon oscop y scree abril (PROC ) No observ ation record ed. [email or web address] [facility] (Pre-Screen) [address] [facility], [place], [address], 09/06/2022 13:36:20 05/30/19 25 02/19/2024 XR, elbow , 3 or more view No observ ation record ed. [email or web address] Not Available 06/2024 11:35:20 Result Notes None recorded. Problems Name Problem SNOMED Code Status Onset Date Resolution Date Notes Provider Name and Address Organization Details Recorded Time Pain of right elbow joint [id number] Active 2024 PATTI Hernández, Cabe[place] 14:00:51 Notes:Some problems listed i n Document: #[id number] could not be added to this patient's chart. Please review this document and add these problems to the patient's chart manually as needed. Problem Notes None recorded. Procedures Surgical History Date Name Laterality Status Provider Name and Address Organization Details Recorded Time Ortho - Cortisone Injection completed Janet Katz NP [address] [facility], [facility] [address], [place], [address], [place]abeo 06/05/2024 14:24:28 Imaging Results None recorded. Procedure Notes None recorded. Medical Equipment None Reported. Allergies No known drug allergies Medications Name Sig Start Date Stop Date Status Note LastModified by Organization Details LastModified Time celecoxib 200 mg capsule TAKE 1 CAPSULE BY MOUTH EVERY DAY active Not Available Not Available No t Available cyclobenzap rine 10 mg tablet TAKE 1 TABLET BY MOUTH EVERY 8 HOURS 06/05 completed Not Available Not Available Not Available ibuprofen 800 mg tablet TAKE 1 TABLET BY MOUTH EVERY 8 HOURS WITH FOOD NEEDED active Not Available Not Available No t Available meloxicam 15 mg tablet TAKE 1 TABLET BY MOUTH EVERY DAY active Not Available Not Available No t Available bupivacaine HCl 0.5 % (5 mg/mL) injection solution Take 5 mg by injection route. 2024 active Not Available Not Available Not Avai lable prednisone 20 mg tablet TAKE 1 TABLET BY MOUTH DAILY FOR 5 DAYS 06/05 completed Not Available Not Available Not Available meloxicam 7.5 mg tablet 06/05 completed Not Available Not Available Not Available Kenalog 10 mg/mL suspension for injection Take 10 mg by injection route. 2024 active [facility]: 0003- [phone] [phone] Not Available Not Available Not Available oseltamivir 75 mg capsule TAKE 1 CAPSULE BY MOUTH EVERY 12 HOURS FOR 5 DAYS 06/05 completed Not Available Not Available Not Available polyethylen e glycol 3350 17 gram/dose oral powder TAKE 17 GRAMS BY MOUTH ONCE DAILY NEEDED 06/05 completed Not Available Not Available Not Available doxycycline hyclate 100 mg tablet TAKE 1 TABLET BY MOUTH TWICE DAILY FOR 10 DAYS 06/05 completed Not Available Not Available Not Available naproxen 500 mg tablet TAKE 1 TABLET BY MOUTH TWICE DAILY WITH FOOD 06/05 completed Not Available Not Available Not Available amoxicillin 875 mg-potassiu m clavulanate 125 mg tablet TAKE 1 TABLET BY MOUTH EVERY 12 HOURS FOR 10 DAYS 06/05 completed Not Available Not Available Not Available Golytely 236 gram-22.74 gram-6.74 gram-5.86 gram oral solution VDIRECTED 06/05 completed Not Available Not Available Not Available BinaxNOW COVID-19 Ag Self Test kit TEST DIRECTED TODAY 06/05 completed Not Available Not Available Not Available Vitals Date Recorded Body height Body mass index (BMI) Body weight Provider Name and Address Organization Details Last Updated DateTime 06/05/2024 160.02 cm 28.3 kg/m2 83076.78 g [facility] 06/05/2024 13:57:51 Date Recorded Body height Body mass index (BMI) Body weight Provider Name and Address Organization Details Last Updated DateTime 07/17/2024 160.02 cm 28.3 kg/m2 90881.78 g [facility] 07/17/2024 13:53:58 Date Recorded Body height Body mass index (BMI) Body weight Provider Name and Address Organization Details Last Updated DateTime 08/28/2024 160.02 cm 28.3 kg/m2 60286.78 g [facility] 08/28/2024 14:46:06 Date Recorded Body height Body weight Body mass index (BMI) Heart rate Oxygen saturation Oxygen saturation in Arterial blood by Pulse oximetry Systolic blood pressure Diastolic blood pressure Provider Name and Address Organization Details Last Updated DateTime 160.02 cm 07048.6 3 g 27.1 kg/m2 110 /min 99 % 99 % 116 mm[Hg] 78 mm[Hg] KEYON Welsh Cabeo 11:26:44 Social History Question Answer Notes LastModified by Organizat ion Details LastModified Time Tobacco Smoking Status Current Every Day Smoker KEYON Welsh null, [place] 09/01/2022 11:30:54 How Much Tobacco Do You Smoke? 1 PPD Information not available 09/01/2022 Sex: Unknown Functional Status Question Answer Note LastModified by Organization D etails LastModified Time What is your level of alcohol consumption? None Information not available 09/01/2022 Mental Status None recorded. Family History Relationship Description Onset Age of this Age Resolved Age Notes LastModified by Organization Details LastModified Time Mother Malignant tumor of breast [email or web address] Not available 08/28 14:45:37 Father Heart disease [email or web address] Not available 2022 11:27:58 Father Hypertensive disorder [email or web address] Not available 2022 11:28:04 Father Hypercholest erolemia [email or web address] Not available 2022 11:28:18 Medical History No medical history recorded. Past Encounters Encounter ID Performer Location Encounter Start Date Encounter Closed Date Diagnosis/Indication Diagnosis SNOMED-CT Code Diagnosis ICD10 Code Diagnosis Note [id number] Cindi An MD [facility] General Surgery [address] [facility], [facility] [address] [place] [address] 09/01/2022 11:24:50 09/01/2022 11:45:19 Screening for malignant neoplasm of colon 881793477 Z12.11 [id number] Jayy Vega MD [facility] [address] [place] [address] 06/05/2024 13:45:37 06/05/2024 14:24:37 Pain of right elbow joint 3395222859 5787633 M25.206 [id number] Jayy Vega MD [facility] [address] [address] 07/17/2024 13:51:21 07/17/2024 14:26:58 Pain of right elbow joint 8684108195 6508814 M25.763 [id number] MD [facility] [address] [address] 08/28/2024 14:44:06 08/28/2024 14:54:43 Pain of right elbow joint 2409480616 4305628 M25.521 Health Concerns Section Related Observation LastModified by Organization Detai ls LastModified Time None Recorded Concern Status LastModified by Organization Details LastModified Time None Recorded Advance Directives Directive None Recorded Payers Insurance Date Sequence Insurance Name Policy Number Policy Bernabe Covered Member ID Bernabe Member ID Guarantor Name 08/28/2024 1 [facility] PRIOR TO 09/25/2020 (MEDICAID REPLACEMENT - HMO) Jean-Paul Dean [id number] Jean-Paul Dean 09/03/2024 1 [facility] ON OR AFTER 09/25/20 (MEDICAID REPLACEMENT - HMO) Jean-Paul Dean [id number] Jean-Paul Dean Notes Date Note Type Note Provider Name and Address Organization Details Recorded Time 09/01/2022 text/html PT WAS SEEN IN THE OFFICE TODAY FOR COLON SCREENING . PT DENIES ABD PAIN /N/V/D/BLEEDING /WT LOSS. PT C/P LLQ PAIN THAT IS EXACERBATED WITH SPICY FOODS. SX RESOLVED AFTER DIET CHANGE . Cindi An MD [address] [place] [address], [facility] [address], [place], [address], [facility] [email or web address] 09/01/2022 11:43:16
== END 2024-09-06 08:46 | disposition home or self-care (01) ==
PROVIDERS: PCP Internal Medicine Infectious Disease; Visit Provider Nurse Practitioner Family
DX: M25.521 Pain in right elbow (principal)
CPT/HCPCS: 73221